=== PATIENT | female | born 1990 | race Two or more races ===

== ENCOUNTER 2024-03-24 23:15 | Emergency (ER) | payer OTHER, MEDICAID, SELFPAY ==
[2024-03-24 23:15] VITALS: BMI 23.1
[2024-03-24 23:50] VITALS: BP 119/76; PULSE 88; RESP 18; TEMP 36.6; O2SAT 100
--- NOTE | 2024-03-25 00:02 | EDNOTE_ITS ---
<Statement entered by Chelsea Roach MD - 03/25/24 22:07> As co-signing physician, I was present and available for consult prn. I concur with the plan and care as documented by the midlevel provider. ED General RME/HPI General Chief complaint: General Adult/Misc Complain Stated complaint: LEFT BREAST PROBLEM Time Seen by Provider: 03/25/24 00:02 Arrival date/time: 03/24/24 23:50 33 year old female present to emergency room with c/o of left breast pain/drainage for 1 week. have been cleaning and applying warm compresses with some improvement. LOCATION: breast SEVERITY: Symptoms are described as being severe with limitations on activities of daily living QUALITY: Symptoms are described as being dull or achy CONTEXT: The patient is unable to identify any inciting events. DURATION/TIMING: The symptoms started approximately 7 day ago and have been constant this then, and have been progressive getting worse. ASSOCIATED SYMPTOMS: The patient is unable to identify any other associated symptoms. MODIFYING FACTORS: The patient is unable to identify any alleviating or ag gravating symptoms. PERTINENT ROS: denies IVDU, states no immunocompromising condition, denies any penetrating trauma, no fever, no unexplained nausea or vomiting, no headache, no chest pain REVIEW OF SYSTEMS: See History of Present Illness - with the exception of those mentioned in the history of present illness, all other systems reviewed and reported as negative GENERAL: In general the patient is awake, interactive, in an emergency department gurney. HEAD/EYES/EARS/NOSE/THROAT: normo-cephalic, atraumatic, mucus membranes are moist, anicteric, palpebral conjunctiva is pink, trachea is midline. CARDIOVASCULAR: regular rate and regular rhythm, no murmurs, heart sounds are not distant, strong pulses in all four extremities that are equal and symmetric bilateral upper and lower extremities, normal capillary refill. CHEST/PULMONARY: + left breast nipple region. white discharge noted. no red streaking.normal chest rise and fall, good air movement, clear to auscultation bilaterally, normal inspiratory to expiratory ratios without evidence of respiratory distress. Female aide at bedside on exam NECK: No midline/Paraspinal tenderness, no step off ROM/Strenght intact No Kernig and bruzinski sign. No trauma EXTREMITY: no tenderness to palpation over the long bones or large joints of the bilateral upper and lower extremities, no joint swelling, no joint erythema, no signs of trauma, no unilateral leg swelling and no peripheral edema. SKIN: warm, dry, well-perfused, no jaundice, no rash, no telangiectasias or petechia. PSYCH: calm, cooperative, no evidence of psychosis or agitation Related Data Home Medications ?Medication ?Instructions ?Recorded ?Confirmed vit no.95-ferrous 1 tab PO QDAY 10/08/22 10/08/22 fumarate 28 mg-folic acid 800 mcg tablet () Previous Rx's ?Medication ?Instructions ?Recorded clindamycin HCl 150 mg capsule 450 mg (3 x 150 mg) PO TID 10 days 03/25/24 (Cleocin HCl) #90 caps Allergies Allergy/AdvReac Type Severity Reaction Status Date / Time Penicillins Allergy Mild Rash Verified 03/24/24 23:18 Course Course Course Narrative: Patient presenting with symptoms of mastisis.? Exam with redness, tenderness, and a lump on her left breast.? Symptomatic care was discussed. We discussed that she she should pump If she is she should start with that breast and but the infants nose towards the lump.? This is where she will get the most suction to open the plugged duct.? She should also use massage and cold/heat.? Hand warmers are a good source of heat.? NSAID's will help with dec reasing inflammation.? ? ? Plan: Prescribed clindamycin 450mg tid for 10 days Advised patient on heat/cold application to affected site for?min q2-3hr for control of inflammation and heat application to affected site for?min q2-3hr for improved perfusion and Ab penetration. Advised Pt to take ibuprofen for pain and inflammation. discussed possible cross over to child and may cause diarrhea Advised patient to continue with breast feeding and/or pump-dump techniques for increased expression of milk. Advised patient on supportive therapies, including keeping affected area clean and free of debris, washing w/ antibacterial soap and H2O, wearing a bra that provides adequate support especially if she plans to exercise or has pendulous breasts, and refraining from drinking caffeinated beverages. Instructed patient on signs and symptoms of worsening wound infection, including pain, fever, redness, swelling, tracking, and sensory/motor deficits, and instructed patient to followup in clinic or in emergency department if symptoms worsen.?? Quality Measures none Orders Category Date Time Status Clindamycin [Cleocin] Med 03/25/24 00:05 Discontinued 450 mg PO X1 ONE Vital Signs Vital signs: Vital Signs Temperature 98 F 03/24/24 23:50 Pulse Rate 88 03/24/24 23:50 Respiratory Rate 18 03/24/24 23:50 Blood Pressure 119/76 03/24/24 23:50 Pulse Oximetry (%) 100 03/24/24 23:50 Oxygen Delivery Method Room Air 03/24/24 23:50 MDM Patient data External records reviewed:: None Clinical information provided by:: patient Social determinants that could affect healthcare access:: none Patient has the following chronic illnesses:: none How is presenting disease/condition affected by chronic disease/condition?: no chronic disease Evaluation data The following diagnostics were reviewed and interpreted by me:: other (specify) (none ) Lab and/or radiology exams considered but not ordered:: none Interpretation Summary: none Medications Medications considered but not ordered:: none Medication administrations:: Medication Administration History Discontinued Medications Clindamycin HCl (Clindamycin 150 Mg Capsule) 450 mg PO X1 ONE Stop: 03/25/24 00:06 as stated above Consultations Consultation(s) initiated? (list below): No Diagnosis Differential Diagnosis ED Complaint MDM: mastitis vs abscess Most likely diagnosis given after review of the tests above:: mastitis Admission Indicated Admission indicated?: not indicated Explain why admission is indicated or not indicated:: not indicated Admission Request Was there a request for admission?: No Disposition Plan Disposition Plan: Discharge Discharge Attestation Discharge Attestation: The patient and all family members were given an opportunity to ask questions and understood the discharge instructions. Discharge instructions specifically effects, indications for sooner follow up or return to the emergency department, and the expected course of current diagnosis. Patient condition: Stable Medical Decision Making Differential Diagnosis Differential Diagnosis: mastitis vs abscess Discharge Plan Plan Patient Disposition: HOME (Self Care) Health Concerns: Follow with PMD as directed Return to ED if sx worsen Prescriptions/Referrals Prescriptions/Med Rec: New clindamycin HCl [Cleocin HCl] 150 mg capsule 450 mg PO TID 10 Days Qty: 90 0RF No Action PNV cmb#95-ferrous fumarate-FA [] 28 mg iron- 800 mcg tablet 1 tab PO QDAY Patient Comments: TAKE 1 TABLET BY MOUTH EVERY DAY Problem List Clinical Impression: Mastitis Patient/Caregiver Discharge Instructions Education Materials: ED Mastitis Print Language: Tajik Stand Alone Forms: Tracie Award Info., Patient Portal Info Letter
[2024-03-25] MEDS: CLINDAMYCIN 150 MG CAPSULE 450 MG PO (00:11)
== END 2024-03-25 00:22 | disposition home or self-care (01) ==
LOC: SERX 03-25 00:40
PROVIDERS: Emergency Provider Emergency Medicine
DX: N61.0 Mastitis without abscess (principal)
CPT/HCPCS: 99282; A9270

== ENCOUNTER 2024-03-29 17:06 | Emergency (ER) | payer OTHER, MEDICAID, SELFPAY ==
[2024-03-29 17:32] VITALS: BP 116/76; PULSE 73; RESP 16; TEMP 36.8; O2SAT 100; BMI 23.1
--- NOTE | 2024-03-29 17:42 | XR_ITS ---
Examination: Breast ultrasound, unilateral, left complete Date and time of exam: March 29, 2024 1845 hrs. Indications: Onset left breast pain today, undergoing nursing 17 months Technique: Real-time oliver scale ultrasonographic imaging performed left breast including all 4 quadrants as well as nipple retroareolar and axillary region. Findings: Diffusely mild edematous left breast, cystitis pattern Prominent pneumothorax Impression: Mild diffuse mastitis pattern, no discrete abscess
--- NOTE | 2024-03-29 17:43 | EDRME_ITS ---
Rapid Medical Screening Exam RME Arrival date/time: 03/29/24 17:06 33-year-old female presents emergency department today with complaints of left- sided breast pain patient reports currently on antibiotics Chief Complaint: General Adult/Misc Complain Vital signs: Vital Signs Temperature 98.3 F 03/29/24 17:32 Pulse Rate 73 03/29/24 17:32 Respiratory Rate 16 03/29/24 17:32 Blood Pressure 116/76 03/29/24 17:32 Pulse Oximetry (%) 100 03/29/24 17:32 Oxygen Delivery Method Room Air 03/29/24 17:32
[2024-03-29 17:57] LABS: Basophils % (Auto) 0 % (0-2.5); Eosinophils # (Auto) 0.1 Thou/mm3 (0.0-0.5); Eosinophils % (Auto) 1 % (0-10); Hematocrit 38.2 % (36.0-46.0); Hemoglobin 12.9 g/dL (12.0-16.0); Immature Granulocytes % (Auto) 0 % (0-0); Immature Granulocytes Auto 0.01 Thou/mm3 (0.00-0.00); Lymphocytes # (Auto) 2.8 Thou/mm3 (1.0-4.8); Lymphocytes % (Auto) 32 % (10-50); Mean Corpuscular HGB Conc 33.8 g/dl (31.0-37.0); Mean Corpuscular Hemoglobin 30.9 pg (25.0-35.0); Mean Corpuscular Volume 92 fL (80-100); Monocytes # (Auto) 0.7 Thou/mm3 (0.0-0.8); Monocytes % (Auto) 8 % (0-12); Neutrophils % (Auto) 58 % (37-80); Nucleated Red Blood Cell % 0 /100 WBC (0); Platelet Count 405 Thou/mm3 (140-440); RDW Standard Deviation 48.6 fL (36.4-46.3); Red Blood Count 4.17 Miln/mm3 (4.00-5.20); White Blood Count 8.6 Thou/mm3 (3.6-11.0)
[2024-03-29 18:31] LABS: Alanine Aminotransferase 14 U/L (10-49); Albumin, Serum 4.9 gm/dL (3.5-5.0); Alkaline Phosphatase 93 U/L (46-116); Anion Gap 7 (7-16); Aspartate Amino Transferase 17 U/L (0-34); BUN/Creatinine Ratio 19 Ratio (12-20); Bilirubin,Total 0.2 mg/dL (0.3-1.2); Blood Urea Nitrogen 13 mg/dL (9-23); C-Reactive Protein < 0.4 mg/dL (0.0-0.9); Calcium 9.7 mg/dL (8.3-10.6); Calcium (Corrected) 9.7 mg/dL (8.5-10.1); Carbon Dioxide 26.4 mMol/L (20.0-31.0); Chloride 107 mMol/L (98-107); Creatinine (Component) 0.7 mg/dL (0.6-1.3); Estimated Creatinine Clearance 99.6 mL/min (>60); Globulin 2.5 gm/dL (2.3-3.5); Glucose 101 mg/dL (74-106); Osmolality,Calculated 279 (275-295); Potassium 4.5 mMol/L (3.4-5.1); Sodium 140 mMol/L (136-145); Total Protein 7.4 gm/dL (5.7-8.2); eGFR > 60 See Note
[2024-03-29 18:32] LABS: HCG,Qualitative Serum Negative
--- NOTE | 2024-03-29 20:10 | PD.EDADULT ---
ED General RME/HPI General Chief complaint: General Adult/Misc Complain Stated complaint: LEFT NIPPLE PAIN . BREAST PAIN - NOT IMPROVING Time Seen by Provider: 03/29/24 18:31 Arrival date/time: 03/29/24 17:06 CC: Left nipple pain HPI patient is continuing to breast-feed her [id number], was seen here 5 days ago and diagnosed with mastitis, is currently on clindamycin patient states he continues to have pain especially when the patient is nursing. Patient is afebrile nontoxic-appearing not in any acute distress RME / HPI RME / HPI narrative: 03/29/24 17:06 33-year-old female presents emergency department today with complaints of left-sided breast pain patient reports currently on antibiotics Related Data Home Medications ?Medication ?Instructions ?Recorded ?Confirmed vit no.95-ferrous 1 tab PO QDAY 10/08/22 10/08/22 fumarate 28 mg-folic acid 800 mcg tablet () Previous Rx's ?Medication ?Instructions ?Recorded clindamycin HCl 150 mg capsule 450 mg (3 x 150 mg) PO TID 10 days 03/25/24 (Cleocin HCl) #90 caps Allergies Allergy/AdvReac Type Severity Reaction Status Date / Time Penicillins Allergy Mild Rash Verified 03/29/24 17:07 Review of Systems Review of Systems Narrative Review of Systems: GEN: No fever, no chills, no weight loss EYES: No discharge, no visual changes, no pain HEENT: No ear pain, no congestion, no sore throat PULM: No shortness of breath, no cough, no congestion CV: No chest pain, no dyspnea on exertion, no palpitations GI: No nausea, no vomiting, no diarrhea, no pain, no constipation : No frequency, no urgency, no dysuria MUSC/SKEL: No joint pain, no back pain SKIN: No rash PSYCH: No hallucinations, no depression HEME/LYMPH: No easy bleeding or bruising tendencies NEURO: No weakness, no headache Past Medical History Past Medical History NEUROLOGIC: Negative Neurological Disorders CARDIAC: Negative Cardiac Disorders or Congestive Heart Failure RESPIRATORY: Negative Chronic Obstructive Pulmonary Disease (COPD) or Asthma GASTROINTESTINAL: Positive Gastrointestinal Disorders and Gastroesophageal Reflux Disease (Gastritis); Negative Hepatitis or Colorectal Cancer GENITOURINARY: Negative Genitourinary Disorders, Renal Disease or Prostate Cancer REPRODUCTIVE: Positive Previous Pregnancies (4 Previous ); Negative Breast Cancer, Endometriosis, Pelvic Inflammatory Disease, Testicular Cancer or Uterine Prolapse MUSCULOSKELETAL: Negative Musculoskeletal Disorders, Bone Cancer or Carpal Tunnel Syndrome ENT: Negative Cataracts ENDOCRINE: Negative Endocrine Disorders, Diabetes Mellitus Type 1 or Diabetes Mellitus Type 2 HEMATOLOGIC: Negative Blood Disorders, Anemia or Sickle Cell Disease PSYCHO/SOCIAL: Positive Depression, Anxiety and Depression OTHER HISTORY: Positive Hospitalization (4 Hospital Deliveres); Negative Autoimmune Disease, Down Syndrome, Developmental Delay, Shingles, Falls, Blood Transfusions, Blood Transfusion Reaction, Anesthesia Reactions, Organ Transplant, Chemotherapy, Radiation Therapy, Hyperbaric Therapy, MRSA, VRSA, Vancomycin-Resistant Enterococci, Human Immunodeficiency Virus (HIV), Chicken Pox, Measles, Mumps, Rubella ([place] Measles), Pertussis, Clostridium Difficile, Cancer, Breast Cancer, Cervical Cancer, Colorectal Cancer, Lung Cancer, Ovarian Cancer, Prostate Cancer or Testicular Cancer Family History FAMILY HISTORY: Negative Family Psychiatric Problems, Family Respiratory Disorders, Family Cardiac Disorders, Family Gastrointestinal Problems, Family Cancer, Family Surgery or Family Anesthesia Reaction Surgical History SURGICAL: Negative Endocrine Surgery, Thyroidectomy, Ear Surgery, Tympanostomy Tube, Eye Surgery, Nose Surgery, Oral Surgery, Tonsillectomy, Adenoidectomy, Cochlear Implant, Corneal Transplant, Throat Surgery, Abdominal Surgery, Tracheostomy, Gastric Bypass Surgery, Gastrostomy, Bowel Surgery, Nephrectomy, Transurethral Resection, Joint Replacement, Amputation, Open Reduction Internal Fixation, Arthroscopy, Neurologic Surgery, Brain Shunt, Mastectomy, Lumpectomy, Hysterectomy, Tubal Ligation, Section, Vasectomy or Organ Transplant Social History SMOKING STATUS: Never smoker ED Exam Narrative Physical exam: [General: Not in any acute distress Head normocephalic HEENT: Within acceptable limits Neck is supple nontender Chest equal chest rise nontender to palpation Breast: Right breast unremarkable left breast no nipple inversion areola clean dry and intact there is a small amount of erythema to the tip of the nipple. No exudate. Mildly tender to palpation no masses in the head or base of the breast. No breast dimpling. Respiratory: Clear to auscultation no wheezes crackles or rubs CV: Rate rhythm is regular no murmurs rubs or clicks Abdomen is distended secondary to body habitus soft nontender no masses positive bowel sounds all 4 quadrants Back: No CVA tenderness no spinous process tenderness from cervical spine thoracic and lumbar spine Skin: Intact no petechiae rash induration ulceration or crepitus Extremities: Moving all extremity against resistance cap refill less than 2 seconds neurosensory intact Neuro: Awake alert oriented x3 Glascow coma 15 no focal deficits] Course Quality Measures none Orders Category Date Time Status US breast LT complete Stat Exams 03/29/24 17:42 Completed CBC Stat Lab 03/29/24 17:46 Completed CRP [C-Reactive Protein] Stat Lab 03/29/24 17:46 Completed Comprehensive Metabolic Panel Stat Lab 03/29/24 17:46 Completed HCG,Qualitative Serum Stat Lab 03/29/24 17:46 Completed Vital Signs Vital signs: Vital Signs Temperature 98.3 F 03/29/24 17:32 Pulse Rate 73 03/29/24 17:32 Respiratory Rate 16 03/29/24 17:32 Blood Pressure 116/76 03/29/24 17:32 Pulse Oximetry (%) 100 03/29/24 17:32 Oxygen Delivery Method Room Air 03/29/24 17:32 MDM Patient data External records reviewed:: [facility] previous records Clinical information provided by:: patient Social determinants that could affect healthcare access:: none Patient has the following chronic illnesses:: None How is presenting disease/condition affected by chronic disease/condition?: uneffected by Evaluation data The following diagnostics were reviewed and interpreted by me:: lab results and radiology exam(s) Lab and/or radiology exams considered but not ordered:: CBC shows no acute leukocytosis anemia thrombocytopenia CMP shows no acute electrolyte imbalance or renal impairment transaminitis or T. bili elevation Ultrasound the breast shows possible mastitis without abscess. Interpretation Summary: Mastitis that continues to improve due to the antibiotics. Patient just encouraged to avoid breast-feeding while taking the antibiotics and allow the breast to heal completely. Medications Medications considered but not ordered:: None Medication administrations:: None Consultations Consultation(s) initiated? (list below): No Diagnosis Differential Diagnosis ED Complaint MDM: Mastitis breast abscess breast cellulitis Most likely diagnosis given after review of the tests above:: Left breast mastitis Admission Indicated Admission indicated?: not indicated Explain why admission is indicated or not indicated:: Stable for discharge Admission Request Was there a request for admission?: No Disposition Plan Disposition Plan: Discharge Discharge Attestation Discharge Attestation: The patient and all family members were given an opportunity to ask questions and understood the discharge instructions. Discharge instructions specifically effects, indications for sooner follow up or return to the emergency department, and the expected course of current diagnosis. Patient condition: Stable Medical Decision Making Differential Diagnosis Differential Diagnosis: Mastitis breast abscess breast cellulitis Lab Data 03/29/24 17:46 03/29/24 17:46 Labs: Lab Results 03/29/24 Range/Units 17:46 WBC 8.6 (3.6-11.0) Thou/mm3 RBC 4.17 (4.00-5.20) Miln/mm3 Hgb 12.9 (12.0-16.0) g/dL Hct 38.2 (36.0-46.0) % MCV 92 (80-100) fL MCH 30.9 (25.0-35.0) pg MCHC 33.8 (31.0-37.0) g/dl RDW Std Deviation 48.6 H (36.4-46.3) fL Plt Count 405 (140-440) Thou/mm3 Neut % (Auto) 58 (37-80) % Lymph % (Auto) 32 (10-50) % [place] % (Auto) 8 (0-12) % Eos % (Auto) 1 (0-10) % Baso % (Auto) 0 (0-2.5) % Neut # (Auto) 5.0 (1.8-7.7) Thou/mm3 Lymph # (Auto) 2.8 (1.0-4.8) Thou/mm3 [place] # (Auto) 0.7 (0.0-0.8) Thou/mm3 Eos # (Auto) 0.1 (0.0-0.5) Thou/mm3 Baso # (Auto) 0.0 (0.0-0.2) Thou/mm3 Immature Gran # (Auto) 0.01 H (0.00-0.00) Thou/mm3 Absolute Nucleated RBC 0.00 (0.00-0.00) Thou/mm3 Immature Gran % 0 (0-0) % Nucleated RBC % 0 (0) /100 WBC Sodium 140 (136-145) mMol/L Potassium 4.5 (3.4-5.1) mMol/L Chloride 107 (98-107) mMol/L Carbon Dioxide 26.4 (20.0-31.0) mMol/L Anion Gap 7 (7-16) BUN 13 (9-23) mg/dL Creatinine 0.7 (0.6-1.3) mg/dL Estim Creat Clear Calc 99.6 (>60) mL/min eGFR > 60 (60 - ) See Note BUN/Creatinine Ratio 19 (12-20) Ratio Glucose 101 (74-106) mg/dL Calculated Osmolality 279 (275-295) Calcium 9.7 (8.3-10.6) mg/dL Corrected Calcium 9.7 (8.5-10.1) mg/dL Total Bilirubin 0.2 L (0.3-1.2) mg/dL AST 17 (0-34) U/L ALT 14 (10-49) U/L Alkaline Phosphatase 93 (46-116) U/L C-Reactive Prot, Quant < 0.4 (0.0-0.9) mg/dL Total Protein 7.4 (5.7-8.2) gm/dL Albumin 4.9 (3.5-5.0) gm/dL Globulin 2.5 (2.3-3.5) gm/dL Albumin/Globulin Ratio 2.0 (1.2-2.2) HCG, Qual Negative Discharge Plan Plan Patient Disposition: HOME (Self Care) Patient condition on transfer: Stable Prescriptions/Referrals Prescriptions/Med Rec: No Action clindamycin HCl [Cleocin HCl] 150 mg capsule 450 mg PO TID 10 Days Qty: 90 0RF PNV cmb#95-ferrous fumarate-FA [] 28 mg iron- 800 mcg tablet 1 tab PO QDAY Patient Comments: TAKE 1 TABLET BY MOUTH EVERY DAY Referrals: No Primary/Family,Physician [Primary Care Provider] - In 1 week Problem List Clinical Impression: Mastitis Patient/Caregiver Discharge Instructions Other Activity Instructions:: Continue take the antibiotics as prescribed, avoid breast-feeding until 72 hours after the last dose of antibiotics are taken. Education Materials: ED Mastitis Print Language: Estonian Stand Alone Forms: Tracie Award Info., Patient Portal Info Letter, Work/School Release PA/FURNACE CONVERTER Supervising Physician PA/FURNACE CONVERTER Supervising Physician: Johnie Hackett ENP
[2024-03-29 20:17] VITALS: RESP 18
== END 2024-03-29 20:19 | disposition home or self-care (01) ==
PROVIDERS: Nurse Practitioner Primary Care; Emergency Provider Emergency Medicine
DX: N61.0 Mastitis without abscess (principal)
CPT/HCPCS: 36415; 76641; 80053; 84703; 85025; 86140; 99284

== ENCOUNTER 2024-04-29 02:16 | Emergency (ER) | payer OTHER, MEDICAID, SELFPAY ==
[2024-04-29 02:18] VITALS: PULSE 68; O2SAT 100
[2024-04-29 02:22] VITALS: BMI 23.1
--- NOTE | 2024-04-29 02:30 | EKG_ITS ---
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
[2024-04-29 02:32] VITALS: BP 89/57; BP 97/58; PULSE 88; RESP 16; TEMP 36.9; O2SAT 99
--- NOTE | 2024-04-29 02:32 | PD.EDRME ---
Rapid Medical Screening Exam RME Arrival date/time: 04/29/24 02:16 33 year old female present to ed for c/o of weakness/diarrhea for 1 day I have greeted and performed a focused initial assessment of this patient. A comprehensive ED assessment and evaluation of the patient, analysis of all test results, and completion of the medical decision making process will be conducted by additional ED providers. Chief Complaint: Weakness
[2024-04-29] MEDS: SODIUM CHLORIDE 0.9% 1000 ML 1,000 ML 999 ML IV (02:47)
[2024-04-29 03:00] LABS: Basophils % (Auto) 0 % (0-2.5); Eosinophils % (Auto) 0 % (0-10); Hematocrit 38.7 % (36.0-46.0); Hemoglobin 13.2 g/dL (12.0-16.0); Immature Granulocytes % (Auto) 0 % (0-0); Immature Granulocytes Auto 0.06 Thou/mm3 (0.00-0.00); Lymphocytes % (Auto) 8 % (10-50); Mean Corpuscular HGB Conc 34.1 g/dl (31.0-37.0); Mean Corpuscular Hemoglobin 30.7 pg (25.0-35.0); Mean Corpuscular Volume 90 fL (80-100); Monocytes # (Auto) 0.3 Thou/mm3 (0.0-0.8); Monocytes % (Auto) 2 % (0-12); Neutrophils # (Auto) 12.1 Thou/mm3 (1.8-7.7); Neutrophils % (Auto) 90 % (37-80); Nucleated Red Blood Cell % 0 /100 WBC (0); Platelet Count 378 Thou/mm3 (140-440); RDW Standard Deviation 44.4 fL (36.4-46.3); White Blood Count 13.4 Thou/mm3 (3.6-11.0)
[2024-04-29 03:26] LABS: HCG,Qualitative Serum Negative
[2024-04-29 03:27] LABS: Alanine Aminotransferase 28 U/L (10-49); Albumin, Serum 4.8 gm/dL (3.5-5.0); Albumin/Globulin Ratio 1.8 (1.2-2.2); Alkaline Phosphatase 101 U/L (46-116); Anion Gap 7 (7-16); Aspartate Amino Transferase 49 U/L (0-34); BUN/Creatinine Ratio 25 Ratio (12-20); Bilirubin,Total 0.5 mg/dL (0.3-1.2); Blood Urea Nitrogen 20 mg/dL (9-23); Calcium 9.8 mg/dL (8.3-10.6); Calcium (Corrected) 9.8 mg/dL (8.5-10.1); Carbon Dioxide 26.6 mMol/L (20.0-31.0); Chloride 104 mMol/L (98-107); Creatinine (Component) 0.8 mg/dL (0.6-1.3); Estimated Creatinine Clearance 87.2 mL/min (>60); Globulin 2.7 gm/dL (2.3-3.5); Glucose 122 mg/dL (74-106); Osmolality,Calculated 279 (275-295); Potassium 3.7 mMol/L (3.4-5.1); Sodium 138 mMol/L (136-145); Total Protein 7.5 gm/dL (5.7-8.2); Troponin I < 0.002 ng/mL (0.0-0.045); eGFR > 60 See Note
[2024-04-29] MEDS: KETOROLAC INJ 30 MG/ML VIAL IVP (03:32)
--- NOTE | 2024-04-29 03:47 | EDNOTE_ITS ---
ED Weakness RME/HPI General Chief complaint: Weakness Stated complaint: GENERALIZED WEAKNESS Time Seen by Provider: 04/29/24 03:46 Arrival date/time: 04/29/24 02:16 33 year old female present to emergency room with c/o of generalized weakness and diarrhea tonight. pt report had Kazakh food prior to having these symptoms. LOCATION: generalized periumbical abdominal pain SEVERITY: Symptoms are described as being severe with limitations on activities of daily living QUALITY: Symptoms are described as being cramping CONTEXT: The patient is unable to identify any inciting events. DURATION/TIMING: The symptoms started approximately one day ago and have been constant this then, and have been progressive getting worse. ASSOCIATED SYMPTOMS: The patient is unable to identify any other associated symptoms. MODIFYING FACTORS: The patient is unable to identify any alleviating or aggravating symptoms. PERTINENT ROS: reports emesis is nonbloody, diarrhea is nonbloody, no recent foreign travel, no recent ingestion of raw seafood or meat, no head trauma, no headache, no chest pain, no orthostatis symptoms, denies any focal abdominal pain, denies any toxicological ingestions REVIEW OF SYSTEMS: See History of Present Illness - with the exception of those mentioned in the history of present illness, all other systems reviewed and reported as negative GENERAL: In general the patient is awake, interactive, in an emergency department gurney. HEAD/EYES/EARS/NOSE/THROAT: normo-cephalic, atraumatic, mucus membranes are moist, anicteric, palpebral conjunctiva is pink, trachea is midline. CARDIOVASCULAR: regular rate and regular rhythm, no murmurs, heart sounds are not distant, strong pulses in all four extremities that are equal and symmetric bilateral upper and lower extremities, normal capillary refill. CHEST/PULMONARY: normal chest rise and fall, good air movement, clear to auscultation bilaterally, normal inspiratory to expiratory ratios without evidence of respiratory distress. NECK: No midline/Paraspinal tenderness, no step off ROM/Strenght intact No Kernig and bruzinski sign. No trauma ABDOMEN: soft, not tender, no masses appreciated BACK: normal range of motion without pain. NEUROLOGICAL: cranio-facial features are symmetric, moves all four extremities equally without obvious limitations or weakness. EXTREMITY: no tenderness to palpation over the long bones or large joints of the bilateral upper and lower extremities, no joint swelling, no joint erythema, no signs of trauma, no unilateral leg swelling and no peripheral edema. SKIN: warm, dry, well-perfused, no jaundice, no rash, no telangiectasias or petechia. PSYCH: calm, cooperative, no evidence of psychosis or agitation RME / HPI RME / HPI Narrative: 04/29/24 02:16 33 year old female present to ed for c/o of weakness/diarrhea for 1 day I have greeted and performed a focused initial assessment of this patient. A comprehensive ED assessment and evaluation of the patient, analysis of all test results, and completion of the medical decision making process will be conducted by additional ED providers. Related Data Home Medications ?Medication ?Instructions ?Recorded ?Confirmed vit no.95-ferrous 1 tab PO QDAY 10/08/22 10/08/22 fumarate 28 mg-folic acid 800 mcg tablet () Allergies Allergy/AdvReac Type Severity Reaction Status Date / Time Penicillins Allergy Mild Rash Verified 03/29/24 17:07 Course Course Course Narrative: Patient presenting with nausea, vomiting, and diarrhea.? Vital signs were reviewed.? Patient afebrile.? Abdominal exam is benign.? No evidence of acute surgical emergency or infection requiring antibiotics.? I considered biliary disease, bowel obstruction, colitis, mesenteric ischemia, appendicitis, urinary tract infection, infectious diarrhea, however, these are less likely given the history and exam.? While in ED patient was provided with toradol 30mg and IV fluids 1 bolus , at which point patient stated that their symptoms had improved. Advised to continue Ibuprofen and Tylenol at home as needed for pain/fever. Patient is to followup with primary physician if symptoms continue. Advised to return to the ER if concern for inability to tolerate PO intake, dehydration, or other concerns. Plan:?? Discharge from ETC Ibuprofen/Acetaminophen for Pain/Fever Prescription for ondansetron for nausea. Pt was advised on supportive therapies, including increasing dietary fiber, eati ng smaller meals, refrain from eating copious amounts of irritating foods (fatty foods, milk products, chocolate, and caffeine), maintaining a food diary, advancing fluids as tolerated, refraining from EtOH consumption, decreasing stress, and increasing exercise. Maintain Fluid Intake: Pedialyte/Gatorade, Juice, Non-caffeinated Pop (Sprite) Patient to follow up with PCP or in ER should symptoms worsen or not improve. Patient verbally expressed understanding and all questions were addressed. Quality Measures none Orders Category Date Time Status EKG (ED ONLY) *Do not use* NOW Care 04/29/24 02:30 Completed IV [Insert IV] STAT Care 04/29/24 02:30 Active EKG (ED Only) Stat Exams 04/29/24 02:30 Draft CBC Stat Lab 04/29/24 02:45 Completed CMP [Comprehensive Metabolic Panel] Stat Lab 04/29/24 02:45 Completed HCG,Qualitative Serum Stat Lab 04/29/24 02:45 Completed Troponin I Stat Lab 04/29/24 02:45 Completed UA [Urinalysis] Stat Lab 04/29/24 03:42 Completed Ketorolac Inj [Toradol Inj] Med 04/29/24 02:50 Discontinued 30 mg IVP X1 ONE Sodium Chloride 0.9% 1000 ml [Ns] 1,000 ml Med 04/29/24 02:31 Discontinued IV 999 mls/hr Vital Signs Vital signs: Vital Signs Temperature 98.5 F 04/29/24 02:32 Pulse Rate 88 04/29/24 02:32 Respiratory Rate 16 04/29/24 02:32 Blood Pressure 89/57 L 04/29/24 02:32 Pulse Oximetry (%) 99 04/29/24 02:32 Oxygen Delivery Method Room Air 04/29/24 02:32 Procedures -ED EKG Interpretation #1: Date of EK04/29/24 Rate: 88 Interpretation: Reviewed by me EKG Impression: Normal sinus rhythm, No acute ST-T changes, No ectopy, No ischemic changes, Normal QRS, Normal intervals and Normal axis Weakness Patient data External records reviewed:: [facility] previous records Clinical information provided by:: patient and family Social determinants that could affect healthcare access:: none Patient has the following chronic illnesses:: none How is presenting disease/condition affected by chronic disease/condition?: no chronic disease Evaluation data The following diagnostics were reviewed and interpreted by me:: lab results Lab and/or radiology exams considered but not ordered:: none Interpretation Summary: cbc/cmp no acute findings hcg: negative urine no infection trop negative Medications / Prescriptions Medications or Prescriptions considered but not ordered:: none Medication administrations:: Medication Administration History Discontinued Medications Sodium Chloride (Ns) 1,000 mls @ 999 mls/hr IV .Q1H1M ONE Stop: 04/29/24 03:31 Last Infusion: 04/29/24 03:33 Dose: Infused Documented By: Admin: 04/29/24 02:47 Dose: 999 mls/hr Documented By: FEMI Ketorolac Tromethamine (Ketorolac Inj 30 Mg/Ml Vial) 30 mg IVP X1 ONE Stop: 04/29/24 02:51 Last Admin: 04/29/24 03:32 Dose: 30 mg Documented By: ELVIE as state above Consultations Consultation(s) initiated? (list below): No Diagnosis Weakness Differential Diagnosis: dehydration and other (gastroenteritis vs uti vs anemia vs mi/nstemi ) Most likely diagnosis given after review of the tests above:: gastroenteritis Admission Indicated Admission indicated?: not indicated Admission Request Was there a request for admission?: No Disposition Plan Disposition Plan: Discharge Discharge Attestation Discharge Attestation: The patient and all family members were given an opportunity to ask questions and understood the discharge instructions. Discharge instructions specifically effects, indications for sooner follow up or return to the emergency department, and the expected course of current diagnosis. Patient condition: Stable Discharge Plan Plan Patient Disposition: HOME (Self Care) Prescriptions/Referrals Prescriptions/Med Rec: No Action PNV cmb#95-ferrous fumarate-FA [] 28 mg iron- 800 mcg tablet 1 tab PO QDAY Patient Comments: TAKE 1 TABLET BY MOUTH EVERY DAY Problem List Clinical Impression: Gastroenteritis Patient/Caregiver Discharge Instructions Education Materials: ED Gastroenteritis, Noninfectious Print Language: Macedonian Stand Alone Forms: Tracie Award Info., Patient Portal Info Letter
[2024-04-29 03:50] LABS: Collection Type, Urine Voided
[2024-04-29 04:03] LABS: Bilirubin,Urine Negative (Negative); Blood,Urine Negative (Negative); Clarity,Urine Clear (Clear/Hazy); Color,Urine Lt-Yellow (Lt Yel-Yel); Glucose, Urine Negative (Negative); Ketones,Urine Negative (Negative); Leukocyte Esterase,Urine Negative (Negative); Nitrite,Urine Negative (Negative); PH,Urine 6.5 (5.0-7.0); Protein,Urine Negative (Neg - Trace); RBC,Urine 2 /hpf (0-3); Specific Gravity,Urine 1.024 (1.001-1.035); Squamous Epithelial Cell,Urine 2 /hpf (0-5); Urobilinogen,Urine Negative mg/dL (0.0-1.0); WBC,Urine 5 /hpf (0-5)
[2024-04-29 04:47] VITALS: BP 101/67; PULSE 92; RESP 16; O2SAT 96
== END 2024-04-29 04:48 | disposition home or self-care (01) ==
LOC: SERX 03:50
PROVIDERS: Physician Assistant; Emergency Provider Emergency Medicine; PCP Family Medicine
DX: K52.9 Noninfective gastroenteritis and colitis, unspecified (principal)
CPT/HCPCS: 36415; 80053; 81001; 84484; 84703; 85025; 93005; 96360; 99284; J1885; J7030

== ENCOUNTER 2025-02-06 21:22 | Emergency (ER) | payer OTHER, MEDICAID, SELFPAY ==
[2025-02-06 21:26] VITALS: BMI 23.1
[2025-02-06 22:05] LABS: Collection Type, Urine Clean Catch
[2025-02-06 22:24] LABS: Bilirubin,Urine Negative (Negative); Blood,Urine 3+ (Negative); Color,Urine Brown (Lt Yel-Yel); Culture Indicated,Urine Contaminated; Glucose, Urine Negative (Negative); Ketones,Urine Negative (Negative); Leukocyte Esterase,Urine Positive (Negative); Nitrite,Urine Negative (Negative); PH,Urine 6.0 (5.0-7.0); Protein,Urine 2+ (Neg - Trace); RBC,Urine 5600 /hpf (0-3); Specific Gravity,Urine 1.028 (1.001-1.035); Squamous Epithelial Cell,Urine 11 /hpf (0-5); Urobilinogen,Urine Negative mg/dL (0.0-1.0); WBC,Urine 730 /hpf (0-5)
[2025-02-06 22:25] LABS: Clarity,Urine Turbid (Clear/Hazy)
[2025-02-06 22:30] VITALS: BP 114/69; PULSE 68; RESP 18; TEMP 37.2; O2SAT 98
--- NOTE | 2025-02-06 22:38 | PD.EDFMALE ---
ED Female Urogenital RME/HPI General Chief complaint: Abdominal Pain Stated complaint: PAINFUL URINATION AND WHITE DISCHARGE Time Seen by Provider: 02/06/25 22:36 Arrival date/time: 02/06/25 21:22 34F with no significant PMH presents to ED with 1 day of dysuria and some white vaginal discharge. Patient is not on cycle. Patient recently finished metronidazole w/o relief. Limitations: no limitations Related Data Home Medications ?Medication ?Instructions ?Recorded ?Confirmed vit no.95-ferrous 1 tab PO QDAY 10/08/22 10/08/22 fumarate 28 mg-folic acid 800 mcg tablet () Previous Rx's ?Medication ?Instructions ?Recorded sulfamethoxazole 800 1 tab PO BID 7 days #14 tabs 02/06/25 mg-trimethoprim 160 mg tablet (Bactrim DS) Allergies Allergy/AdvReac Type Severity Reaction Status Date / Time Penicillins Allergy Mild Rash Verified 02/06/25 21:24 Review of Systems Review of Systems Systems Reviewed: All systems reviewed, normal except as documented Genitourinary Genitourinary: Reports as per HPI, Reports dysuria and Reports vaginal discharge Past Medical History Past Medical History NEUROLOGIC: Negative Neurological Disorders CARDIAC: Negative Cardiac Disorders or Congestive Heart Failure RESPIRATORY: Negative Chronic Obstructive Pulmonary Disease (COPD) or Asthma GASTROINTESTINAL: Positive Gastrointestinal Disorders and Gastroesophageal Reflux Disease (Gastritis); Negative Hepatitis or Colorectal Cancer GENITOURINARY: Negative Genitourinary Disorders, Renal Disease or Prostate Cancer REPRODUCTIVE: Positive Previous Pregnancies (4 Previous ); Negative Breast Cancer, Endometriosis, Pelvic Inflammatory Disease, Testicular Cancer or Uterine Prolapse MUSCULOSKELETAL: Negative Musculoskeletal Disorders, Bone Cancer or Carpal Tunnel Syndrome ENT: Negative Cataracts ENDOCRINE: Negative Endocrine Disorders, Diabetes Mellitus Type 1 or Diabetes Mellitus Type 2 HEMATOLOGIC: Negative Blood Disorders, Anemia or Sickle Cell Disease PSYCHO/SOCIAL: Positive Depression, Anxiety and Depression OTHER HISTORY: Positive Hospitalization (4 Hospital Deliveres); Negative Autoimmune Disease, Down Syndrome, Developmental Delay, Shingles, Falls, Blood Transfusions, Blood Transfusion Reaction, Anesthesia Reactions, Organ Transplant, Chemotherapy, Radiation Therapy, Hyperbaric Therapy, MRSA, VRSA, Vancomycin-Resistant Enterococci, Human Immunodeficiency Virus (HIV), Chicken Pox, Measles, Mumps, Rubella ([place] Measles), Pertussis, Clostridium Difficile, Cancer, Breast Cancer, Cervical Cancer, Colorectal Cancer, Lung Cancer, Ovarian Cancer, Prostate Cancer or Testicular Cancer Family History FAMILY HISTORY: Negative Family Psychiatric Problems, Family Respiratory Disorders, Family Cardiac Disorders, Family Gastrointestinal Problems, Family Cancer, Family Surgery or Family Anesthesia Reaction Surgical History SURGICAL: Negative Endocrine Surgery, Thyroidectomy, Ear Surgery, Tympanostomy Tube, Eye Surgery, Nose Surgery, Oral Surgery, Tonsillectomy, Adenoidectomy, Cochlear Implant, Corneal Transplant, Throat Surgery, Abdominal Surgery, Tracheostomy, Gastric Bypass Surgery, Gastrostomy, Bowel Surgery, Nephrectomy, Transurethral Resection, Joint Replacement, Amputation, Open Reduction Internal Fixation, Arthroscopy, Neurologic Surgery, Brain Shunt, Mastectomy, Lumpectomy, Hysterectomy, Tubal Ligation, Section, Vasectomy or Organ Transplant Social History SMOKING STATUS: Never smoker ED Exam General Limitations: Present no limitations General appearance: Present alert and in no apparent distress Head Head exam: Present atraumatic Neck Neck exam: Present normal inspection, full ROM and trachea midline Chest Chest inspection: Present normal inspection and symmetric chest wall rise Neurological Exam Neurological exam: Present alert and oriented X3 Psychiatric Psychiatric exam: Present normal affect and normal mood Skin Skin exam: Present warm, dry, intact and normal color Course Quality Measures none Orders Category Date Time Status HCG Qualitative,Urine Stat Lab 02/06/25 21:40 Completed Urinalysis, C/S if Indicated Stat Lab 02/06/25 21:40 Completed Vital Signs Vital signs: Vital Signs Temperature 98.9 F 02/06/25 22:30 Pulse Rate 68 02/06/25 22:30 Respiratory Rate 18 02/06/25 22:30 Blood Pressure 114/69 02/06/25 22:30 Pulse Oximetry (%) 98 02/06/25 22:30 Oxygen Delivery Method Room Air 02/06/25 22:30 O2 at 98% on RA and WNLs Urogenital - Female MDM Narrative MDM Narrative:: 34F with no significant PMH presents to ED with 1 day of dysuria and some white vaginal discharge. Patient is not on cycle. Patient recently finished metronidazole w/o relief. Physical exam reveals well-appearing female. Patient is afebrile, calm, and alert. UA lots of RBCs and WBCs. HCG neg. Meds and counseling services manager given. Patient is not concerned about STDs. Patient data External records reviewed:: [facility] previous records Clinical information provided by:: patient Social determinants that could affect healthcare access:: none Patient has the following chronic illnesses:: none How is presenting disease/condition affected by chronic disease/condition?: no chronic disease Evaluation data The following diagnostics were reviewed and interpreted by me:: lab results Lab and/or radiology exams considered but not ordered:: ordered Interpretation Summary: above Medications / Prescriptions Medications or Prescriptions considered but not ordered:: ordered Medication administrations:: above Consultations Consultation(s) initiated? (list below): No Diagnosis Urogenital Female Differential Diagnosis: urinary tract infection, bacterial vaginosis, trichomoniasis, cervicitis, ovarian cyst, vaginitis, ruptured ovarian cyst, cyst of Bartholin's gland, cystitis, dysmenorrhea and other (yeast infection) Most likely diagnosis given after review of the tests above:: UTI Admission Indicated Admission indicated?: not indicated Admission Request Was there a request for admission?: No Disposition Plan Disposition Plan: Discharge Discharge Attestation Discharge Attestation: The patient and all family members were given an opportunity to ask questions and understood the discharge instructions. Discharge instructions specifically effects, indications for sooner follow up or return to the emergency department, and the expected course of current diagnosis. Patient condition: Stable Discharge Plan Plan Patient Disposition: HOME (Self Care) Discharge Disposition comment: Stable Prescriptions/Referrals Prescriptions/Med Rec: New sulfamethoxazole-trimethoprim [Bactrim DS] 800-160 mg tablet 1 tab PO BID 7 Days Qty: 14 0RF No Action PNV no.95-ferrous fumarate-FA [] 28 mg iron- 800 mcg tablet 1 tab PO QDAY Patient Comments: TAKE 1 TABLET BY MOUTH EVERY DAY Referrals: Pablo Abad([facility])MD [Primary Care Provider, Family Practice] - In 1 week Problem List Clinical Impression: UTI (urinary tract infection) Patient/Caregiver Discharge Instructions Education Materials: ED CYSTITIS Female Adult Additional Instructions: Please follow-up with PCP within 24-48 hours and return immediately if symptoms worsen. Print Language: Mauritian Stand Alone Forms: Patient Portal Info Letter KELLY/JAZZ Supervising Physician KELLY/JAZZ Supervising Physician: Dr. Pacheco
[2025-02-06 23:00] LABS: HCG Qualitative,Urine Negative
== END 2025-02-06 23:20 | disposition home or self-care (01) ==
PROVIDERS: Physician Assistant; Emergency Provider Emergency Medicine; PCP Family Medicine
DX: N39.0 Urinary tract infection, site not specified (principal)
CPT/HCPCS: 81001; 81025; 99282